=== PATIENT | female | born 1995 | race Caucasian/White ===

== ENCOUNTER 2019-02-01 19:24 | Emergency (ER) | payer OTHER ==
[2019-02-01 19:29] VITALS: BP 127/78; PULSE 98; BMI 22.3
[2019-02-01 20:21] LABS: BASO % 0.4 % (0-2.0); EOS % 1.2 % (0-4.5); HEMATOCRIT 41.6 % (32.4-45.2); HEMOGLOBIN 13.8 GM/dl (10.7-15.3); LYMPH % 29.3 % (8-40); MCH 30.7 pg (25.7-33.7); MCHC 33.2 g/dl (32.0-36.0); MEAN CELL VOLUME 92.4 fl (80-96); MEAN PLT VOLUME 7.8 fl (7.5-11.1); MONO % 6.2 % (3.8-10.2); NEUT % 62.9 % (42.8-82.8); PLATELET COUNT 367 K/MM3 (134-434); RDW 12.1 % (11.6-15.6); WHITE BLOOD COUNT 9.1 K/mm3 (4.0-10.8)
[2019-02-01 20:36] LABS: EPITHELIAL CELLS FEW /hpf
[2019-02-01 20:40] LABS: ALBUMIN 4.9 g/dl (3.4-5.0); CALCIUM 9.4 mg/dl (8.5-10); CREATININE 0.6 mg/dl (0.55-1.3); POTASSIUM 4.2 mmol/L (3.5-5.1); TOT PROT 7.7 g/dl (6.4-8.2)
[2019-02-01 21:02] LABS: BILIRUBIN,TOTAL 0.4 mg/dl (0.2-1)
--- NOTE | 2019-02-01 21:44 | PDOC ---
Documentation entered by Mackenzie White SCRIBE, acting as scribe for Petra Herzog MD. Petra Herzog MD: This documentation has been prepared by the Cindy ramirez Sammi, SCRIBE, under my direction and personally reviewed by me in its entirety. I confirm that the documentation accurately reflects all work, treatment, procedures, and medical decision making performed by me. History of Present Illness - General Chief Complaint: Pain Stated Complaint: ABD PAIN History Source: Patient Exam Limitations: No Limitations - History of Present Illness Initial Comments: 02/01/19 19:51 The patient is a 23 year old female who presents to the emergency department for evaluation of chronic intermittent abdominal pain, most recent episode beginning in December and has been worsening since. She reports nausea and diarrhea yesterday. The patient states she has seen her PCP for this who has put her on reflux medication and pain relievers with mild improvement in symptoms. PAST MEDICAL HISTORY: acid reflux PAST SURGICAL HISTORY: no significant history FAMILY HISTORY: no pertinent history SOCIAL HISTORY: Pt lives with family and is employed. MEDICATIONS: reviewed ALLERGIES: As per nursing notes Adult ROS General: No fevers or chills, no weakness, no weight loss HEENT: No change in vision. No sore throat,. No ear pain CardioVascular: No chest pain or shortness of breath Respiratory:No cough, or wheezing. Gastrointestinal: (+)abdominal pain (+)nausea (+)diarrhea Genitourinary: No dysuria, hematuria, or frequency Musculoskeletal: No joint or muscle pain or swelling Neurologic: No headache, vertigo, dizziness or loss of consciousness All other systems reviewed and normal Adult Exam: General: Well-nourished well-developed individual, no acute distress HEENT: Throat: Normal, tonsils normal, no erythema or exudate Neck: Supple, no meningeal signs, no lymphadenopathy Eyes::Pupils equal reactive and round, extraocular motion intact Chest: Nontender to palpation Cardiac: S1-S2 normal, regular rate and rhythm, no murmurs rubs or gallops Respiratory: Lungs clear to auscultation bilateral Abdomen: (+)mild ttp right upper quadrant. Soft, nondistended, normal bowel sounds. Negative Mahaffey sign. Extremities: Warm, dry, no cyanosis, clubbing, or edema Skin: No rashes Neuro: Alert and oriented x3, nonfocal exam, grossly intact, normal gait Psych: Normal mood and affect 02/01/19 21:40 Assessment plan: This is a 23-year-old female who comes in complaining of some chronic abdominal pain 6 months. Patient has seen her primary care doctor couple a times and was given some antacids for gastroesophageal reflux disease. Here in the emergency room patient did have some mild right upper quadrant pain so workup was initiated to rule out gallbladder issues. Patient had normal blood count normal CBC, and normal chemistries. Patient had an ultrasound that was negative for any acute pathology. Patient discharged home told to follow-up with her primary care doctor for referral to a GI doctor *Physical Exam - Vital Signs Last Vital Signs Temp Pulse Resp BP Pulse Ox 98 H 14 127/78 100 02/01/19 19:26 02/01/19 19:26 02/01/19 19:26 02/01/19 19:26 ED Treatment Course - LABORATORY CBC & Chemistry Diagram: 02/01/19 20:00 02/01/19 20:00 - ADDITIONAL ORDERS Additional order review: Laboratory Results 02/01/19 02/01/19 02/01/19 20:00 20:00 20:00 Sodium Potassium Chloride Carbon Dioxide Anion Gap BUN Creatinine Est GFR (CKD-EPI)AfAm Est GFR (CKD-EPI)NonAf Random Glucose Calcium Total Bilirubin AST ALT Alkaline Phosphatase Total Protein Albumin Lipase 114 Urine Color Yellow Urine Appearance Clear Urine pH 8.5 H Urine Protein Negative Urine Glucose (UA) Negative Urine Ketones Negative Urine Blood Trace-intact Urine Nitrite Negative Urine Bilirubin Negative Urine Urobilinogen 0.2 Ur Leukocyte Esterase Trace H Urine RBC 2-5 Urine WBC 10-20 Ur Transition Epith Cell Few Urine Bacteria Moderate Urine HCG, Qual Negative 02/01/19 20:00 Sodium 139 Potassium 4.2 Chloride 103 Carbon Dioxide 29 Anion Gap 7 L BUN 13.0 Creatinine 0.6 Est GFR (CKD-EPI)AfAm 149.95 Est GFR (CKD-EPI)NonAf 129.38 Random Glucose 105 Calcium 9.4 Total Bilirubin 0.4 AST 20 ALT 14 Alkaline Phosphatase 86 Total Protein 7.7 Albumin 4.9 Lipase Urine Color Urine Appearance Urine pH Urine Protein Urine Glucose (UA) Urine Ketones Urine Blood Urine Nitrite Urine Bilirubin Urine Urobilinogen Ur Leukocyte Esterase Urine RBC Urine WBC Ur Transition Epith Cell Urine Bacteria Urine HCG, Qual 02/01/19 20:00 RBC 4.50 MCV 92.4 MCHC 33.2 RDW 12.1 MPV 7.8 Neutrophils % 62.9 Lymphocytes % 29.3 Monocytes % 6.2 Eosinophils % 1.2 Basophils % 0.4 - RADIOLOGY Radiology Studies Ordered: Category Date Time Status ABDOMEN US -LIMITED [US] Stat Ultrasound 02/01/19 19:49 Ordered Discharge - Discharge Information Problems reviewed: Yes Clinical Impression/Diagnosis: Abdominal pain Qualifiers: Abdominal location: upper abdomen, unspecified Qualified Code(s): R10.10 - Upper abdominal pain, unspecified Condition: Good Disposition: HOME - Admission No - Follow up/Referral - Patient Discharge Instructions Additional Instructions: Continue all your medications as prescribed. Call your doctor in the morning for referral to a GI. Return to the emergency department immediately with ANY new, persistent or worsening symptoms. Continue any medications as previously prescribed by your physician. You should follow up with your primary doctor as soon as possible regarding today's emergency department visit. . Please make sure your doctor reviews the results of your emergency evaluation. Thank you for coming to the Emergency Department today for your care. It was a pleasure to see you today. Please note that your evaluation is INCOMPLETE until you follow-up with your doctor. - Post Discharge Activity
== END 2019-02-01 21:52 | disposition home or self-care (01) ==
LOC: FER 19:24
DX: R10.10 Upper abdominal pain, unspecified (principal); K21.9 Gastro-esophageal reflux disease without esophagitis
CPT/HCPCS: 36415; 76705-TC; 80053; 81003; 81015; 83690; 84703; 85025; 99284-25

== ENCOUNTER 2020-11-17 18:45 | Emergency (ER) | payer OTHER ==
[2020-11-17 19:17] VITALS: BP 130/70; PULSE 95; TEMP 98.9; BMI 20.9
== END 2020-11-17 20:58 | disposition home or self-care (01) ==
LOC: FER 18:45
DX: S09.90XA Unspecified injury of head, initial encounter (principal); R68.84 Jaw pain; S00.03XA Contusion of scalp, initial encounter
CPT/HCPCS: 70450-TC; 70486-TC; 99284-25